=== PATIENT | female | born 1995 | race Caucasian/White ===

== ENCOUNTER 2021-03-03 19:07 | Emergency (ER) | payer OTHER ==
[~2021-03-03 19:07] MED LIST: COLACE 100MG C100 MG PO; IBUPROFEN600 MG PO; NORCO 5-325 TA1 EACH PO; PRENATAL VITAM1 EAC6 PO
[2021-03-03 20:29] LABS: HEMOGLOBIN 12.6 gm/dl (12.3-15.3); RED BLOOD COUNT 4.35 M/UL (4.00-5.10); WHITE BLOOD COUNT 6.4 K/UL (4.5-11.0)
[2021-03-03 21:00] LABS: BUN/CREATININE RATIO 14 (0-10)
== END 2021-03-04 01:08 | disposition home or self-care (01) ==
LOC: ER1 19:07
PROVIDERS: Family Medicine
DX: R55 Syncope and collapse (principal)
CPT/HCPCS: 70450; 71045; 80053; 80307; 82550; 82553; 82962; 83874; 84484; 85025; 93005; 99284; G0480

== ENCOUNTER → 2021-04-07 | Outpatient (CLI) | payer OTHER | LOC: KOH-I 14:55 → CATH 04-16 10:00 | DX: R55 Syncope and collapse (principal); G93.89 Other specified disorders of brain | CPT/HCPCS: 70551 ==

== ENCOUNTER → 2021-04-16 | Outpatient (CLI) | payer OTHER | LOC: CATH 10:00 | DX: R55 Syncope and collapse (principal) ==

== ENCOUNTER → 2021-05-13 | Outpatient (CLI) | payer OTHER | LOC: CT 13:30 | DX: R94.02 Abnormal brain scan (principal); I63.9 Cerebral infarction, unspecified | CPT/HCPCS: 70496; 70498; Q9967 ==

== ENCOUNTER → 2021-07-31 | Outpatient (CLI) | payer OTHER | LOC: EMI 07-14 09:00 | DX: R94.02 Abnormal brain scan (principal); R55 Syncope and collapse | CPT/HCPCS: 70553; A9577 ==

== ENCOUNTER → 2021-08-19 | Outpatient (CLI) | payer OTHER | LOC: ECHO 10:04 | DX: I63.9 Cerebral infarction, unspecified (principal) | CPT/HCPCS: ECHO; 93306 ==

== ENCOUNTER 2021-12-28 11:58 | Emergency (ER) | payer OTHER ==
[2021-12-28 13:00] LABS: HEMOGLOBIN 12.5 gm/dl (12.3-15.3); RED BLOOD COUNT 4.43 M/UL (4.00-5.10); WHITE BLOOD COUNT 6.3 K/UL (4.5-11.0)
[2021-12-28 15:00] LABS: BUN/CREATININE RATIO 17 (0-10)
== END 2021-12-28 13:45 ==
LOC: ER1 11:58
PROVIDERS: Emergency Medicine
DX: U07.1 COVID-19 (principal); G45.9 Transient cerebral ischemic attack, unspecified
CPT/HCPCS: 70450; 80048; 80307; 81001; 82962; 83735; 84703; 85025; 93005; 99285; U0002

== ENCOUNTER → 2022-08-13 | Outpatient (CLI) | payer OTHER | LOC: KOH-I 08:00 | DX: R55 Syncope and collapse (principal) | CPT/HCPCS: 70450 ==